=== PATIENT | female | born 1940 | race Caucasian/White ===

== ENCOUNTER 2017-01-30 16:58 | Emergency (ER) | payer OTHER, BC ==
[2017-01-30 17:08] VITALS: BMI 28.9
--- NOTE | 2017-01-30 18:14 | PDOC ---
Attending Attestation - Resident Resident Name: KatieMarlena - ED Attending Attestation I have performed the following: I have examined & evaluated the patient, The case was reviewed & discussed with the resident, I agree w/resident's findings & plan, Exceptions are as noted - HPI HPI: 01/30/17 18:12 76 yo female referred from Dr Mcneil's office for leg pain and difficulty ambulating x 3 days, no trauma -achy dull pain prompted visit to PCP -walking w cane the past 2 days -pain goes down front of left leg 01/30/17 19:22 - Physicial Exam PE: 01/30/17 23:23 Well-nourished, well-developed 76-year-old female who was ambulating the emergency room assisted by a cane. HEENT atraumatic, normocephalic Eyes PERRLA, extraocular movements intact. Neck is supple, no bruits CVS regular rate and rhythm S1, S2 Lungs are clear to auscultation bilaterally Abdomen nontender, nondistended. Extremities motor strength 5 out of 5 bilaterally, no deformity. Extremities- left hip pain, but she is able to fully range the leg. Neuro alert and oriented 3 and ambulatory - Medical Decision Making 01/30/17 23:28 no acute dislocation or fractures seen on radiograph pt feels much better after pain medication IMP musculoskeletal pain plan f/u with ortho if symptoms persist
--- NOTE | 2017-01-30 18:25 | PDOC ---
History of Present Illness - General Chief Complaint: Pain Stated Complaint: PCP SENT/LEG PAIN Time Seen by Provider: 01/30/17 17:39 - History of Present Illness Initial Comments: 01/30/17 18:10 Patient is a 76 y.o. female with a PMH of HTN who presents at the behest of her PCP, Dr. Colunga, for 3 day h/o pain in her LLE. Patient states the pain has increased in severity in the past three days prompting her visit to her PCP today. Patient denies any recent trauma or physical exertion and notes she has been ambulating with the use of a cane however she had significant pain while ambulating. NKDA Surgical: denies PMD: Dr. Colunga Social: denies cigarettes, denies alcohol, denies recreational drugs Past History - Past Medical History Allergies/Adverse Reactions: Allergies Allergy/AdvReac Type Severity Reaction Status Date / Time No Known Allergies Allergy Verified 01/30/17 17:02 Home Medications: Ambulatory Orders Aspirin [ASA -] 81 mg PO DAILY 01/30/17 Losartan 50Mg/Hctz 12.5MG [Hyzaar -] 1 tab PO DAILY 01/30/17 COPD: No HTN: Yes - Surgical History Cholecystectomy: Yes - Suicide/Smoking/Psychosocial Hx Smoking History: Never smoked Review of Systems - Review of Systems Constitutional: No: Chills, Fever Respiratory: No: Shortness of Breath Cardiac (ROS): No: Chest Pain Neurological: Yes: Unsteady Gait All Other Systems: Reviewed and Negative *Physical Exam - Vital Signs Last Vital Signs Temp Pulse Resp BP Pulse Ox 98.7 F 99 H 20 166/91 97 01/30/17 17:03 01/30/17 17:03 01/30/17 17:03 01/30/17 17:03 01/30/17 17:03 - Physical Exam General Appearance: Yes: Nourished, Appropriately Dressed Respiratory/Chest: positive: Lungs Clear Cardiovascular: positive: S1, S2 Vascular Pulses: Dorsalis-Pedis (R): 3+, Doralis-Pedis (L): 2+ Extremity: positive: Normal Capillary Refill, Normal Inspection, Other (Full ROM on PE, neurovasculary intact however pulses on LLE < pulse RLE; (-) anterior and (-) posterior drawer test) Integumentary: positive: Normal Color, Dry, Warm Neurologic: positive: assignment manager II-XII NML intact, Fully Oriented, Alert Medical Decision Making - Medical Decision Making 01/30/17 18:48 Patient is a 76 y.o. female who presents with c/o LLE pain and difficulty ambulating. On PE, patient has full ROM, however significant pain and pulse in LLE is decreased. PLAN: 1. XR L Hip/Pelvis Reassess 01/30/17 19:33 Patient signed out to Dr. Ev Hernandez (Attending) as no EM resident overnight. *DC/Admit/Observation/Transfer Diagnosis at time of Disposition: Pain
[2017-01-30] MEDS ORDERED: traMADol HCL 50 MG TABLET PO ONE (18:29)
[2017-01-30] MEDS ORDERED: traMADol HCL 50 MG TABLET ONE (18:47)
--- NOTE | 2017-01-30 21:44 | PDOC ---
*Physical Exam - Vital Signs Last Vital Signs Temp Pulse Resp BP Pulse Ox 98.7 F 99 H 20 166/91 97 01/30/17 17:03 01/30/17 17:03 01/30/17 17:03 01/30/17 17:03 01/30/17 17:03 ED Treatment Course - Medications Given in the ED: ED Medications Discontinued Medications Generic Name Dose Route Start Last Admin Trade Name Freq PRN Reason Stop Dose Admin Tramadol HCl 50 mg 01/30/17 18:29 01/30/17 18:53 Ultram - PO 01/30/17 18:30 50 mg ONCE ONE Administration Medical Decision Making - Medical Decision Making 01/30/17 21:43 rt hip pain x 2 days with no trauma,ambulating with cane *DC/Admit/Observation/Transfer Diagnosis at time of Disposition: Pain - Discharge Dispostion Disposition: HOME Condition at time of disposition: Stable - Prescriptions Prescriptions: Tramadol HCl 50 mg PO BID PRN #14 tablet MDD 2 PRN Reason: Pain - Referrals Referrals: Nacho Colunga MD [Primary Care Provider] - - Patient Instructions Printed Discharge Instructions: DI for Acute Pain -- Adult, DI for Musculoskeletal Pain - Post Discharge Activity
[2017-01-30 21:55] VITALS: BP 166/90; PULSE 98; TEMP 98.6
== END 2017-01-30 21:55 | disposition home or self-care (01) ==
LOC: JER 16:58
DX: M79.662 Pain in left lower leg (principal); R26.2 Difficulty in walking, not elsewhere classified; R26.89 Other abnormalities of gait and mobility; Z99.89 Dependence on other enabling machines and devices; I10 Essential (primary) hypertension; Z79.82 Long term (current) use of aspirin
CPT/HCPCS: 73523-TC; 99282-25